=== PATIENT | female | born 1935 | race Caucasian/White ===

== ENCOUNTER → 2017-02-23 | Outpatient (CLI) | payer MEDICARE, MEDICAID ==
[2014-11-30 11:34] VITALS: BMI 24.8
[~2017-02-23] MED LIST: ACET-1966 PO; ACID1TAB21 PO; ALP5 PO; AMIT-104 PO; ANTIBIOTIC; ASCO-191 PO; ASPI-1471 PO; BACDS PO; BUSP10TA95 PO; BUSP15TA69 PO; CEF250 PO; CEF300 PO; CEP500 PO; CHOL100059 PO; CHOL200038 PO; CHOL500050 PO; CIP500 PO; CIPR-326 PO; CIPR-344 PO; CLOP75TA43 PO; CRAN500C10 PO; CYAN25007 PO; CYAN500T54 PO; CYCL-277 PO; CYCL10TA29 PO; DAR100 PO; DICL1ADH32 TD; DIPH-1 PO; DOC100 PO; DUL30 PO; FAM20 PO; FURO20TA19 PO; FURO40TA35 PO; GABA-549 PO; GOLYTE PO; GUAI118S76 PO; HYDR-385 PO; HYDR-6015 PO; IBU200 PO; IBU600 PO; IBUP200C71 PO; L.AC1CAP6 PO; LACT1CAP62 PO; LACT1CAP64 PO; LEVO-85 PO; LIBRAX; LID5T TP; LISI2.5T60 PO; LISINOPRIL PO; LOPE-111 PO; LOPE1LIQ49 PO; LOPE1TAB55 PO; LOPE2CAP88 PO; LOR5/325 PO; LOR75 PO; LORA-630 PO; MAGN400T4 PO; MELA3TAB45 PO; MET50 PO; METH-280 PO; METO25TA93 PO; MOM PO; MORP-1 PO; NIT4 SL; OMEP-137 PO; ONDA4TAB PO; OXYC-865 PO; OXYGENHOME INH; PAN20 PO; PAN40 PO; PANT40TA65 PO; PHENA100 PO; POTA-23 PO; POTA-28 PO; POTASSIUM; PRAV20TA65 PO; PROM-110 PO; PROM12.556 PO; PROM25S PR; PSYL3.4P2 PO; QUET25TA30 PO; RIV10 PO; SALI44.34 PO; SERT-1 PO; SERT-173 PO; SERT-181 PO; SERT20OR6 PO; SIMV-49 PO; SIMV-54 PO; SPIR25TA78 PO; SUC1 PO; SUCR1TAB51 PO; SUL500 PO; SULF-198 PO; TRAM-420 PO; VICODIN; VICODIN PO; [UNRECOGNIZED DRUG - CODE] PO; [UNRECOGNIZED DRUG - CODE] TP; lomotil PO
--- NOTE | 2017-02-23 16:00 | RADIOLOGY IMAGING REPORT ---
[place] [facility] [place] NAME: Hannah Gibson : 1935 MR: [id number] V: [id number] EXAM DATE: ORDERING PHYSICIAN: ROBBIN ARTIS TECHNOLOGIST: Location: [facility] Patient: Hannah Gibson : 1935 Visit/Account:[id number] Date of Sevice: 02/23/2017 Exam type: WRIST LEFT 2 VIEW History: L this morning with wrist pain Comparison: None. Findings: There is a mildly comminuted impacted fracture through the distal left radial metaphysis and epiphysi s. There appears to be a tiny intra-articular extension of the fracture. Incidentally noted are sev ere degenerative changes involving the first carpometacarpal articulation IMPRESSION: 1. Mildly comminuted impacted intra-articular fracture to the distal left radius Report Dictated By: Alexandra Tipton MD at 02/23/2017 3:55 PM Report E-Signed By: Alexandra Tipton MD at 02/23/2017 3:56 PM WSN:[email or web address]
--- NOTE | 2017-02-23 16:00 | RADIOLOGY IMAGING REPORT ---
FACILITY: [facility] PATIENT NAME: Hannah Gibson : 1935 MR: [id number] V: [id number] EXAM DATE: ORDERING PHYSICIAN: ROBBIN ARTIS TECHNOLOGIST: Location: Patient: Hannah Gibson : 1935 Visit/Account:[id number] Date of Sevice: 02/23/2017 Exam type: ELBOW 2 VIEW LEFT History: Fell this morning, Comparison: None. Findings: There are several well-corticated bony densities project adjacent to the medial and lateral humeral epicondyles. There is however no evidence of acute fractures or dislocations involving the left elbow IMPRESSION: 1. No evidence of acute fracture station involving the left elbow Report Dictated By: Alexandra Tipton MD at 02/23/2017 3:51 PM Report E-Signed By: Alexandra Tipton MD at 02/23/2017 3:55 PM WSN:[email or web address]
== END ==
LOC: RAD 14:25
PROVIDERS: ATTEND Family Medicine
DX: S52.572A Other intraarticular fracture of lower end of left radius, initial encounter for closed fracture (principal); M25.522 Pain in left elbow

== ENCOUNTER → 2017-03-01 | Outpatient (REF) | payer MEDICARE, MEDICAID ==
[2014-11-30 11:34] VITALS: BMI 24.8
== END ==
LOC: ZZSPRING 16:38
PROVIDERS: ATTEND Family Medicine
DX: R82.90 Unspecified abnormal findings in urine (principal); R29.6 Repeated falls
CPT/HCPCS: 81001

== ENCOUNTER → 2017-03-05 | Outpatient (REF) | payer MEDICARE, MEDICAID ==
[2014-11-30 11:34] VITALS: BMI 24.8
== END ==
LOC: ZZSENDIN 14:34
PROVIDERS: ATTEND Family Medicine
DX: R31.0 Gross hematuria (principal)
CPT/HCPCS: 81001; 87088

== ENCOUNTER → 2017-03-18 | Outpatient (CLI) | payer MEDICARE, MEDICAID ==
[2014-11-30 11:34] VITALS: BMI 24.8
--- NOTE | 2017-03-18 14:13 | RADIOLOGY IMAGING REPORT ---
FACILITY: [facility] [place] PATIENT NAME: Hannah Gibson : 1935 MR: [id number] V: [id number] EXAM DATE: ORDERING PHYSICIAN: ROBBIN ARTIS TECHNOLOGIST: [place] [facility] [place] : 1935 Visit/Account:[id number] Date of Sevice: 03/18/2017 Two views left wrist Indication: Fracture three weeks ago, follow-up Comparison: X-ray examination wrist February 23 Findings: Bones are osteopenic. Cast material has been removed. Fracture lucencies are still appreciated involving the comminuted, impacted fracture distal left radi us. Lateral view demonstrates stable appearance of the dorsal cortical step-off. IMPRESSION: 1. Compared to February 23, stable appearance of the comminuted, impacted distal left radial fracture. Report Dictated By: Jhon Laws MD at 03/18/2017 2:06 PM Report E-Signed By: Jhon Laws MD at 03/18/2017 2:09 PM WSN:[email or web address]
== END ==
LOC: RAD 11:35
PROVIDERS: ATTEND Family Medicine
DX: S52.92XD Unspecified fracture of left forearm, subsequent encounter for closed fracture with routine healing (principal)

== ENCOUNTER → 2017-04-01 | Outpatient (CLI) | payer MEDICARE, MEDICAID ==
[2014-11-30 11:34] VITALS: BMI 24.8
[~2017-04-01] MED LIST changes: -SERT20OR6 PO
--- NOTE | 2017-04-01 11:58 | RADIOLOGY IMAGING REPORT ---
FACILITY: [facility] - [place] PATIENT NAME: Hannah Gibson : 1935 MR: [id number] V: [id number] EXAM DATE: ORDERING PHYSICIAN: ROBBIN ARTIS TECHNOLOGIST: Location: [facility] [place] Patient: Hannah Gibson : 1935 Visit/Account:[id number] Date of Sevice: 04/01/2017 WRIST LEFT 2 VIEW History: Left wrist fracture. Comparison study: March 18, 2017. Findings: Again noted is a comminuted fracture of the distal left radius with mild impaction. There has been bony resorption and sclerosis around the fracture line. Fracture lines do not appear to ex tend to the articular surface. Sclerosis in the left ulnar epiphyseal region is reflective of healing of a previously occult horizon kelsea fracture. There are findings of osteoarthrosis involving the left first CMC joint. There is a subtle focus of calcification near the TFC. IMPRESSION: 1. Healing comminuted mildly impacted fracture of the distal left radius. The fracture line is only faintly visible this time. 2. Sclerosis in the distal left ulna consistent with healing of a previously occult horizontal fract ure. 3. 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 Report Dictated By: Cali Fallon MD at 04/01/2017 11:49 AM Report E-Signed By: Cali Fallon MD at 04/01/2017 11:53 AM WSN:[email or web address]
== END ==
LOC: RAD 11:21
PROVIDERS: ATTEND Family Medicine
DX: S52.592D Other fractures of lower end of left radius, subsequent encounter for closed fracture with routine healing (principal); M18.12 Unilateral primary osteoarthritis of first carpometacarpal joint, left hand

== ENCOUNTER 2017-06-10 00:07 | Day surgery (SDC) | payer MEDICARE, MEDICAID ==
[2014-11-30 11:34] VITALS: Ht 152.4 cm; Wt 63.5 kg
[~2017-06-10] VITALS: Ht 152.4 cm; Wt 63.5 kg
[~2017-06-10 00:07] MED LIST changes: +CHOL4PAC14 PO; +NYST15PO4 TP; +SULF1TAB24 PO
[2017-06-10 06:53] VITALS: BP 148/79
[2017-06-10] MEDS ORDERED: LIDOCAINE/SOD BICARB 8.4% SYR ID ONE (07:00)
[2017-06-10] MEDS ORDERED: NORMOSOL R SOLN(*) 1000 ML BAG 1,000 ML IV PRN (07:00)
[2017-06-10] MEDS ORDERED: PROPOFOL EMUL(*) 10MG/ML 20 ML 40 ML ONE (07:03)
--- NOTE | 2017-06-10 08:38 | Short(Outpt) Discharge Summary ---
Discharge Summary Reason for Hosp/Final Diag: (1) Dysphagia Status: Chronic Hospital Course & Plan: EGD with biopsies and esophageal dilation completed without problems. Departure Discharge to: Assisted Living Discharge Instructions Home Meds Active Scripts Ondansetron (ZOFRAN ODT) 4 Mg Tab.rapdis, 4 MG PO TID Y for NAUSEA/VOMITING, # 30 TAB.ANA MARIA 1 Refill Prov:ALONSO BENEDICT MD 05/23/15 Hydrocodone Bit/Acetaminophen (HYDROCODON-ACETAMINOPHEN 5-325) 1 Each Tab, 1 EACH PO QID Y for pain, #120 TAB Prov:LIZZY SOLIS MD 12/02/14 Lidocaine (LIDOCAINE) 1 Each Patch, 1 EACH TP QDAY Y for pain, #10 PATCH 1 Refill Prov:BETH SOLIS MD 10/26/14 Reported Medications Sulfamethoxazole/Trimethoprim (SULFAMETHOXAZOLE-TMP DS TABLET) 1 Each Tablet, 0.5 TAB PO Q12H 05/08/17 Nystatin 100,000 Unit/Gm Top Powder (NYSTATIN 100,000 UNIT/GM TOP POWDER) 15 Gm Powder, 15 GM TP PRN, TUBE 05/08/17 Cholestyramine/Aspartame (CHOLESTYRAMINE LIGHT PACKET) 4 Gm Powd.pack, 4 GM PO BID 05/08/17 Cyclobenzaprine Hcl (CYCLOBENZAPRINE HCL) 10 Mg Tablet, 5 MG PO TID for Muscle Relaxant, TAB 06/19/16 Acidoph/L.bulg/Bif.b/S.thermop (ALICE-BID CAPLET) 1 Each Tablet, 1 EACH PO QDAY 06/16/16 Promethazine Hcl (PROMETHAZINE HCL) 25 Mg Tablet, 12.5 MG PO Q8H, TAB 06/16/16 Magnesium Hydroxide (MILK OF MAGNESIA) 400 Mg/5 Ml Oral.susp, 15-30 ML PO PRN Y for CONSTIPATION, BOTTLE 06/16/16 Lorazepam (LORAZEPAM) 0.5 Mg Tablet, 1 MG PO TID 06/16/16 Diclofenac Epolamine (FLECTOR) 1 Each Patch.td12, 1 EACH TD PRN Y for PAIN 06/16/16 Oxygen (OXYGEN) Inha, 3 L INH, L 11/29/14 Loperamide Hcl (IMODIUM A-D) 1 Mg/7.5 Ml Liquid, 2 MG PO PRN 1-2 tab after each loose stool do not exceed 16mg/24hr 10/25/14 Saliva Stimulant Agents Comb.3 (BIOTENE MOISTURIZING MOUTH) 44.3 Ml [place], 1 SPRAY PO QID, SPRAY 10/01/14 Cholecalciferol (Vitamin D3) (VITAMIN D3) 50,000 Unit Capsule, 49797 UNIT PO THURSDAY, CAPSULE 10/01/14 Nitroglycerin (NITROSTAT) 0.4 Mg Subl, 0.4 MG SL Q5MIN 09/20/14 Diphenoxylate Hcl/Atropine (LOMOTIL TABLET) 1 Each Tablet, 1 EACH PO BID, TAB 09/20/14 Magnesium Oxide (MAG-OXIDE) 400 Mg Tablet, 400 MG PO BID 09/14/14 Omeprazole (OMEPRAZOLE) 20 Mg Tablet.dr, 20 MG PO BID, TAB 09/14/14 Lisinopril (LISINOPRIL) 2.5 Mg Tablet, 2.5 MG PO QDAY 09/14/14 Sertraline Hcl (ZOLOFT) 100 Mg Tablet, 150 MG PO QDAY, TAB 09/14/14 Simvastatin (SIMVASTATIN) 20 Mg Tablet, 20 MG PO HS, TAB 09/14/14 Furosemide (LASIX) 40 Mg Tablet, 20 MG PO DAILY, TAB 09/14/14 Acetaminophen (TYLENOL) 325 Mg Tablet, 2 TAB PO Q6H Y for PAIN 06/28/14 Melatonin (MELATONIN) 3 Mg Tablet.er, 3 MG PO HS 06/28/14 Cyanocobalamin (Vitamin B-12) (VITAMIN B-12) 2,500 Mcg Tab.subl, 2500 MCG PO DAILY 06/28/14 Aspirin (ASPIR 81) 81 Mg Tablet.dr, 81 MG PO QDAY, TAB 05/08/14 Buspirone Hcl (BUSPIRONE HCL) 15 Mg Tablet, 15 MG PO BID, TAB TAKE 1 TABLET BY MOUTH TWICE A DAY 03/15/14 Metoprolol Tartrate (Metoprolol Tartrate) 25 Mg Tablet, 0.5 TAB PO BID, 0 Refills 09/19/09 Discontinued Reported Medications Guaifenesin/Dextromethorphan (TUSSIN DM CLEAR LIQUID) 118 Ml Syrup, 118 ML PO 4- 6HRS PRN COUGH 06/19/16 Methocarbamol (METHOCARBAMOL) 750 Mg Tablet, 750 MG PO Q8-12H 06/16/16 Lactose-Free Food (ENSURE COMPLETE) 237 Ml Liquid, 237 ML PO QDAY 02/14/15 Quetiapine Fumarate (SEROQUEL) 25 Mg Tablet, 25 MG PO BID Y for PRN 09/20/14 Diet: Regular Activity: As Tolerated Special Instructions: Your EGD was completed without problems. You have some inflammation in your lower stomach so continue omeprazole as you are currently taking it. I did perform biopsies and my office will call you in the next week and let you know what the biopsies show. I also dilated your esophagus. Please call my office if you are having problems. Problem Qualifiers (1) Dysphagia: Dysphagia type: esophageal phase Qualified Codes: R13.10 - Dysphagia, unspecified ALONSO BENEDICT MD Jun 10, 2017 08:38
[2017-06-10 08:48] VITALS: BP 102/55
[2017-06-10 09:00] VITALS: BP 104/55
[2017-06-10 09:12] VITALS: BP 107/49
[2017-06-10 09:15] VITALS: BP 91/52
== END 2017-06-10 10:08 | disposition home or self-care (01) ==
LOC: OR 00:07
PROVIDERS: ATTEND Surgery
DX: K44.9 Diaphragmatic hernia without obstruction or gangrene (principal); K29.70 Gastritis, unspecified, without bleeding
CPT/HCPCS: 43239; 87077; 88305; 88344; J2704

== ENCOUNTER → 2017-09-17 | Outpatient (CLI) | payer MEDICARE, MEDICAID ==
[2014-11-30 11:34] VITALS: BMI 24.8
[~2017-09-17] MED LIST changes: +IBUP-136 PO; -IBUP200C71 PO; -SPIR25TA78 PO; +SPIR25TA80 PO
--- NOTE | 2017-09-17 12:04 | RADIOLOGY IMAGING REPORT ---
FACILITY: [facility] PATIENT NAME: Hannah Gibson : 1935 MR: [id number] V: [id number] EXAM DATE: ORDERING PHYSICIAN: POPEYE YANG TECHNOLOGIST: Location: [facility] Patient: Hannah Gibson : 1935 Visit/Account:[id number] Date of Sevice: 09/17/2017 ABDOMEN/PELVIS W/O CONTRAST HISTORY: Right flank pain TECHNIQUE: Axial images acquired through the abdomen/pelvis. Coronal and sagittal reformatting also performed. No IV contrast administered. Dose Lowering Technique One of the following dose optimization techniques was utilized in the performance of this exam: Autom ated exposure control; adjustment of the mA and/or kV according to the patient's size; or use of an i terative reconstruction technique. Specific details can be referenced in the facility's radiology C T exam operational policy. COMPARISON: May 30, 2016 FINDINGS: Visualized lung bases: Bilateral lower lobe pulmonary nodules appear stable. At least one appears t o be calcified Hepatobiliary: Postsurgical changes from a cholecystectomy. Calcified granulomas Spleen: Negative. Adrenals: Negative. Pancreas: Negative. Kidneys ureters and bladder: 2 mm obstructing calculus upper pole calyx of the right kidney again see n. Small intraparenchymal calcification lower pole right kidney also appears similar. Unchanged is a lobular contour to the right kidney. Left kidney appears severely atrophic containing multiple calcifications although appears similar t o the prior study . The bladder is partially decompressed therefore not ideally evaluated Genitalia: Hysterectomy GI: Diverticulosis left-sided colon although no CT evidence of acute diverticulitis Vessels/spaces/nodes: At least moderate vascular calcifications of the abdominal aorta and branch ve ssels. Bones/soft tissues: There is a small periumbilical hernia containing fat also noted is a small ventr al hernia to the left of midline in the upper abdomen also containing fat . Extensive postsurgical changes at L4, L5 and S1 from posterior lumbar interbody fusion with intervert ebral support cages. Extensive spondylotic changes are seen throughout the lumbar spine. There is a defect in the right iliac bone similar to the prior study and may be a donor site from a p rior bone graft. There are numerous soft tissue calcifications in the buttocks bilaterally which may be related to prior injections Additional findings: None pertinent. IMPRESSION: Nonobstructing nephrolithiasis on the right Severely atrophic left kidney with nonobstructing nephrolithiasis Diverticulosis left-sided colon Small. Focal hernia containing fat and small ventral hernia in the upper abdomen to the left midline also containing fat Lower lobe pulmonary nodules remain stable Postsurgical changes from a cholecystectomy and hysterectomy Evidence of a prior granulomatous process Additional chronic findings as described Report Dictated By: Alexandra Tipton MD at 09/17/2017 11:45 AM Report E-Signed By: Alexandra Tipton MD at 09/17/2017 12:00 PM MAGDALENEN:[email or web address]
== END ==
LOC: CT 02:30
DX: N20.0 Calculus of kidney (principal); K57.30 Diverticulosis of large intestine without perforation or abscess without bleeding; K43.9 Ventral hernia without obstruction or gangrene; R91.8 Other nonspecific abnormal finding of lung field; Z90.49 Acquired absence of other specified parts of digestive tract; Z90.79 Acquired absence of other genital organ(s); N26.1 Atrophy of kidney (terminal)
CPT/HCPCS: 74176

== ENCOUNTER 2017-11-03 00:49 | Day surgery (SDC) | payer MEDICARE, BC, MEDICAID ==
[2014-11-30 11:34] VITALS: Ht 152.4 cm; Wt 62.1 kg
[2017-11-03] VITALS (9 sets, daily range): BP systolic 76–121; BP diastolic 39–63
[~2017-11-03] VITALS: Ht 152.4 cm; Wt 62.1 kg
[~2017-11-03 00:49] MED LIST changes: +QUET25TA PO
[2017-11-03] MEDS ORDERED: LIDOCAINE/SOD BICARB 8.4% SYR ID ONE (08:50)
[2017-11-03] MEDS ORDERED: NORMOSOL R SOLN(*) 1000 ML BAG 1,000 ML IV PRN (08:50)
[2017-11-03] MEDS ORDERED: PROPOFOL EMUL(*) 10MG/ML 20 ML 40 ML ONE (09:39)
--- NOTE | 2017-11-03 10:05 | Short(Outpt) Discharge Summary ---
Discharge Summary Reason for Hosp/Final Diag: (1) Diarrhea Status: Chronic Hospital Course & Plan: Colonoscopy with polypectomy and biopsies completed without problems. (2) Mucus in stool Status: Chronic (3) Abdominal pain Status: Chronic (4) Tubular adenoma of colon Status: Chronic Departure Discharge to: Home, Self Care Discharge Instructions Home Meds Active Scripts Ondansetron (ZOFRAN ODT) 4 Mg Tab.rapdis, 4 MG PO TID PRN for NAUSEA/VOMITING, #30 TAB.ANA MARIA 1 Refill Prov:ALONSO BENEDICT MD 05/23/15 Hydrocodone Bit/Acetaminophen (HYDROCODON-ACETAMINOPHEN 5-325) 1 Each Tab, 1 EACH PO QID PRN for pain, #120 TAB Prov:LIZZY SOLIS MD 12/02/14 Lidocaine (LIDOCAINE) 1 Each Patch, 1 EACH TP QDAY PRN for pain, #10 PATCH 1 Refill Prov:BETH SOLIS MD 10/26/14 Reported Medications Quetiapine Fumarate (QUETIAPINE FUMARATE) 25 Mg Tablet, 25 MG PO BID 10/23/17 Ibuprofen (IBUPROFEN) 200 Mg Capsule, 1 CAP PO Q6H, CAPSULE 10/23/17 Gabapentin (GABAPENTIN) 300 Mg Capsule, 100 MG PO PRN, CAPSULE 10/23/17 Sulfamethoxazole/Trimethoprim (SULFAMETHOXAZOLE-TMP DS TABLET) 1 Each Tablet, 0.5 TAB PO Q12H 05/08/17 Nystatin 100,000 Unit/Gm Top Powder (NYSTATIN 100,000 UNIT/GM TOP POWDER) 15 Gm Powder, 15 GM TP PRN, TUBE 05/08/17 Cyclobenzaprine Hcl (CYCLOBENZAPRINE HCL) 10 Mg Tablet, 5 MG PO TID for Muscle Relaxant, TAB 06/19/16 Acidoph/L.bulg/Bif.b/S.thermop (ALICE-BID CAPLET) 1 Each Tablet, 1 EACH PO QDAY 06/16/16 Promethazine Hcl (PROMETHAZINE HCL) 25 Mg Tablet, 12.5 MG PO Q8H, TAB 06/16/16 Magnesium Hydroxide (MILK OF MAGNESIA) 400 Mg/5 Ml Oral.susp, 15-30 ML PO PRN PRN for CONSTIPATION, BOTTLE 06/16/16 Lorazepam (LORAZEPAM) 0.5 Mg Tablet, 1 MG PO TID 06/16/16 Diclofenac Epolamine (FLECTOR) 1 Each Patch.td12, 1 EACH TD PRN PRN for PAIN 06/16/16 Oxygen (OXYGEN) Inha, 3 L INH, L 11/29/14 Loperamide Hcl (IMODIUM A-D) 1 Mg/7.5 Ml Liquid, 2 MG PO PRN 1-2 tab after each loose stool do not exceed 16mg/24hr 10/25/14 Saliva Stimulant Agents Comb.3 (BIOTENE MOISTURIZING MOUTH) 44.3 Ml [place], 1 SPRAY PO QID, SPRAY 10/01/14 Cholecalciferol (Vitamin D3) (VITAMIN D3) 50,000 Unit Capsule, 90345 UNIT PO THURSDAY, CAPSULE 10/01/14 Nitroglycerin (NITROSTAT) 0.4 Mg Subl, 0.4 MG SL Q5MIN 09/20/14 Magnesium Oxide (MAG-OXIDE) 400 Mg Tablet, 400 MG PO BID 09/14/14 Omeprazole (OMEPRAZOLE) 20 Mg Tablet.dr, 20 MG PO BID, TAB 09/14/14 Lisinopril (LISINOPRIL) 2.5 Mg Tablet, 2.5 MG PO QDAY 09/14/14 Sertraline Hcl (ZOLOFT) 100 Mg Tablet, 150 MG PO QDAY, TAB 09/14/14 Simvastatin (SIMVASTATIN) 20 Mg Tablet, 20 MG PO HS, TAB 09/14/14 Furosemide (LASIX) 40 Mg Tablet, 20 MG PO DAILY, TAB 09/14/14 Acetaminophen (TYLENOL) 325 Mg Tablet, 2 TAB PO Q6H PRN for PAIN 06/28/14 Melatonin (MELATONIN) 3 Mg Tablet.er, 3 MG PO HS 06/28/14 Cyanocobalamin (Vitamin B-12) (VITAMIN B-12) 2,500 Mcg Tab.subl, 2500 MCG PO DAILY 06/28/14 Aspirin (ASPIR 81) 81 Mg Tablet.dr, 81 MG PO QDAY, TAB 05/08/14 Buspirone Hcl (BUSPIRONE HCL) 15 Mg Tablet, 15 MG PO BID, TAB TAKE 1 TABLET BY MOUTH TWICE A DAY 03/15/14 Metoprolol Tartrate (Metoprolol Tartrate) 25 Mg Tablet, 0.5 TAB PO BID, 0 Refills 09/19/09 Diet: Regular Activity: As Tolerated Special Instructions: Your colonoscopy was completed without any problems and your prep was excellent (Good Job!!). I removed 2 polyps from your colon and they were sent to pathology. I also took biopsies of your colon and rectum to evaluate possible causes of your diarrhea and the mucus in your stool. My office will call and schedule a follow up appointment with me for the next several weeks to discuss these results with you in the clinic. Problem Qualifiers (1) Diarrhea: Diarrhea type: unspecified type Qualified Codes: R19.7 - Diarrhea, unspecified (2) Abdominal pain: Abdominal location: generalized Qualified Codes: R10.84 - Generalized abdominal pain ALONSO BENEDICT MD Nov 03, 2017 10:05
== END 2017-11-03 11:40 | disposition home or self-care (01) ==
LOC: OR 00:49
PROVIDERS: ATTEND Surgery
DX: D12.3 Benign neoplasm of transverse colon (principal); K63.5 Polyp of colon; K57.30 Diverticulosis of large intestine without perforation or abscess without bleeding
CPT/HCPCS: 00811; 45385; 88305; J2704

== ENCOUNTER → 2017-12-15 | Outpatient (CLI) | payer MEDICARE, BC, MEDICAID ==
[2014-11-30 11:34] VITALS: BMI 24.8
== END ==
LOC: ZZSPRING 02:46
PROVIDERS: ATTEND Family Medicine
DX: E78.00 Pure hypercholesterolemia, unspecified (principal); E53.9 Vitamin B deficiency, unspecified; N18.4 Chronic kidney disease, stage 4 (severe)
CPT/HCPCS: 36415; 82310; 82374; 82435; 82465; 82565; 82607; 82947; 83718; 84132; 84295; 84478; 84520

== ENCOUNTER → 2018-01-26 | Outpatient (CLI) | payer MEDICARE, BC, MEDICAID ==
[2014-11-30 11:34] VITALS: BMI 24.8
== END ==
LOC: ZZSPRING 01:23
PROVIDERS: ATTEND Family Medicine
DX: N18.4 Chronic kidney disease, stage 4 (severe) (principal)
CPT/HCPCS: 36415; 82310; 82374; 82435; 82565; 82947; 84132; 84295; 84520

== ENCOUNTER → 2018-02-23 | Outpatient (CLI) | payer MEDICARE, MEDICAID ==
[2014-11-30 11:34] VITALS: BMI 24.8
== END ==
LOC: ZZSPRING 01:37
PROVIDERS: ATTEND Family Medicine
DX: N17.9 Acute kidney failure, unspecified (principal); I50.9 Heart failure, unspecified; E78.5 Hyperlipidemia, unspecified
CPT/HCPCS: 36415; 82310; 82374; 82435; 82565; 82947; 84132; 84295; 84520

== ENCOUNTER → 2018-03-02 | Outpatient (CLI) | payer MEDICARE, MEDICAID ==
[2014-11-30 11:34] VITALS: BMI 24.8
== END ==
LOC: ZZSPRING 00:44
PROVIDERS: ATTEND Internal Medicine Nephrology
DX: N17.9 Acute kidney failure, unspecified (principal); D50.9 Iron deficiency anemia, unspecified
CPT/HCPCS: 36415; 82040; 82310; 82340; 82374; 82435; 82507; 82550; 82565; 82728; 82947; 83540; 83550; 83735; 83945; 84100; 84132; 84295; 84520; 84560; 85027

== ENCOUNTER → 2018-03-10 | Outpatient (CLI) | payer MEDICARE, MEDICAID ==
[2014-11-30 11:34] VITALS: BMI 24.8
--- NOTE | 2018-03-10 11:41 | RADIOLOGY IMAGING REPORT ---
[place] [facility] [place] : 1935 MR: [id number] V: [id number] EXAM DATE: ORDERING PHYSICIAN: ROBBIN ARTIS TECHNOLOGIST: Location: [facility] [place] Patient: Hannah Gibson : 1935 Visit/Account:[id number] Date of Sevice: 03/10/2018 CT ABDOMEN PELVIS W/O CON HISTORY: Right-sided abdomen pain, right-sided flank pain TECHNIQUE: Axial images acquired through the abdomen/pelvis. Coronal and sagittal reformatting also performed. No IV contrast administered.Dose Lowering Technique One of the following dose optimization techniques was utilized in the performance of this exam: Autom ated exposure control; adjustment of the mA and/or kV according to the patient's size; or use of an i terative reconstruction technique. Specific details can be referenced in the facility's radiology C T exam operational policy. COMPARISON: September 17, 2017 FINDINGS: Visualized lung bases: Bilateral pulmonary micronodules remain stable. At least one appears to be c alcified Hepatobiliary: There are postsurgical changes from a cholecystectomy Spleen: Negative. 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 There is a 5 mm hypoattenuating mass left adrenal gland appears stable likely a small in cidental adenoma although too small to characterize Pancreas: Negative. Kidneys ureters and bladder: 2 mm nonobstructing calculus upper pole calyx of the right kidney again seen. There is a punctate 1 mm nonobstructing calculus lower pole calyx of the right kidney. Small intraparenchymal calcification lower pole of the right kidney also again noted perhaps minimally more prominent. There are severe atrophy of the left kidney which contains coarse calcifications although appears sim ilar to the prior examination. There is no evidence of hydronephrosis or hydroureter Genitalia: Hysterectomy GI: There is extensive diverticulosis throughout the left-sided the colon. There appears to be mild increased thickening in the sigmoid colon with mild infiltrative changes seen in the pericolonic fat . This is concerning for acute diverticulitis. There are several mildly dilated loops of small rogelio l in the right lower quadrant and mid lower abdomen. There are mild infiltrative changes seen in the surrounding fat as well.. A definite transitional point is not seen Vessels/spaces/nodes: At least moderate vascular calcification seen throughout the abdomen and pelvi s . There is a trace amount of fluid adjacent to the inferior right lobe of the liver and in the le ft lower quadrant abdomen Bones/soft tissues: There is a small periumbilical hernia containing fat. Ventral hernia to the lef t midline in the upper abdomen also containing fat again seen.. There is an additional ventral herni a or superiorly in the upper abdomen to left of midline also containing fat Additional findings: Spondylotic changes and postoperative changes lumbar spine appear relatively un changed. Also again noted is a defect in the right iliac bone that appears stable and may be donor s ite from a prior bone graft. Soft tissue calcifications are also noted in the buttocks bilaterally. 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 Also noted are several mildly dilated loops of small bowel in the right lower quadrant in the mid lower abdomen with mild infiltra tive changes in th surrounding fat as well. Definite transitional point is not seen. This could re present a partial small bowel obstruction or possibly enteritis .Small periumbilical hernia containing fat and two additional ventral hernias in the upper abdomen Additional chronic findings as described Results were called to ROBBIN ARTIS at 03/10/2018 11:36 AM. Report Dictated By: Alexandra Tipton MD at 03/10/2018 10:54 AM Report E-Signed By: Alexandra Tipton MD at 03/10/2018 11:37 AM WSN:[email or web address]
== END ==
LOC: CT 07:03
PROVIDERS: ATTEND Family Medicine
DX: N20.0 Calculus of kidney (principal); K57.30 Diverticulosis of large intestine without perforation or abscess without bleeding; R91.8 Other nonspecific abnormal finding of lung field
CPT/HCPCS: 74176

== ENCOUNTER → 2018-03-30 | Outpatient (CLI) | payer MEDICARE, MEDICAID ==
[2014-11-30 11:34] VITALS: BMI 24.8
== END ==
LOC: ZZSPRING 00:37
PROVIDERS: ATTEND Family Medicine
DX: E87.6 Hypokalemia (principal)
CPT/HCPCS: 36415; 82310; 82374; 82435; 82565; 82947; 84132; 84295; 84520

== ENCOUNTER → 2018-03-30 | Outpatient (CLI) | payer MEDICARE, MEDICAID ==
[2014-11-30 11:34] VITALS: BMI 24.8
--- NOTE | 2018-03-30 16:33 | RADIOLOGY IMAGING REPORT ---
[place] [facility] [place] Hannah Gisbon : 1935 MR: [id number] V: [id number] EXAM DATE: ORDERING PHYSICIAN: ROBBIN ARTIS TECHNOLOGIST: Location: [facility] [place] Patient: Hannah Gibson : 1935 Visit/Account:[id number] Date of Sevice: 03/30/2018 CHEST PA LAT Indication: History of heart attack, patient with cough shortness of breath. Comparison: Chest x-ray 11/10/2016 Findings: Lungs: There is mild hyperinflation and flattening of the diaphragms. The lungs are clear. Mediastinum/pulmonary vasculature: Heart size and pulmonary vasculature are normal. Bones/soft tissues: Sternotomy wires are unchanged. IMPRESSION: Clear lungs. Report Dictated By: Dudley Segura at 03/30/2018 4:26 PM Report E-Signed By: Dudley Segura at 03/30/2018 4:27 PM WSN:[email or web address]
== END ==
LOC: RAD 15:39
PROVIDERS: ATTEND Family Medicine
DX: R05 Cough (principal)
CPT/HCPCS: 71046

== ENCOUNTER → 2018-04-06 | Outpatient (CLI) | payer MEDICARE, MEDICAID ==
[2014-11-30 11:34] VITALS: BMI 24.8
== END ==
LOC: ZZSPRING 01:14
PROVIDERS: ATTEND Family Medicine
DX: R05 Cough (principal); J44.9 Chronic obstructive pulmonary disease, unspecified; E87.5 Hyperkalemia
CPT/HCPCS: 36415; 82310; 82374; 82435; 82565; 82947; 84132; 84295; 84520

== ENCOUNTER → 2018-04-27 | Outpatient (CLI) | payer MEDICARE, MEDICAID ==
[2014-11-30 11:34] VITALS: BMI 24.8
--- NOTE | 2018-04-27 12:56 | RADIOLOGY IMAGING REPORT ---
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 Unchanged linear type atelectasis/scarring is noted within the lingula. There is stable hyperinflation with similar chronic central bronchitic changes. No evidence of new i nfiltrate or failure. No effusion or pneumothorax. Bones are osteopenic with multilevel degenerativ e change. No acute osseous finding. IMPRESSION: 1. Pulmonary hyperinflation with stable chronic central bronchitic changes. No acute finding. Report Dictated By: Jhon Laws MD at 04/27/2018 12:52 PM Report E-Signed By: Jhon Laws MD at 04/27/2018 12:53 PM WSN:[email or web address]
== END ==
LOC: RAD 12:08
PROVIDERS: ATTEND Physician Assistant
DX: M85.89 Other specified disorders of bone density and structure, multiple sites (principal); R91.8 Other nonspecific abnormal finding of lung field
CPT/HCPCS: 71046

== ENCOUNTER → 2018-04-27 | Outpatient (REF) | payer MEDICARE, MEDICAID ==
[2014-11-30 11:34] VITALS: BMI 24.8
== END ==
LOC: ZZSENDIN 12:09
PROVIDERS: ATTEND Physician Assistant
DX: I50.20 Unspecified systolic (congestive) heart failure (principal)
CPT/HCPCS: 83880

== ENCOUNTER → 2018-05-04 | Outpatient (REF) | payer MEDICARE, MEDICAID ==
[2014-11-30 11:34] VITALS: BMI 24.8
== END ==
LOC: ZZSENDIN 11:36
PROVIDERS: ATTEND Physician Assistant
DX: I50.22 Chronic systolic (congestive) heart failure (principal)
CPT/HCPCS: 83880

== ENCOUNTER → 2018-05-10 | Outpatient (CLI) | payer MEDICARE, MEDICAID ==
[2014-11-30 11:34] VITALS: BMI 24.8
== END ==
LOC: US 02:29
PROVIDERS: ATTEND Physician Assistant
DX: I50.22 Chronic systolic (congestive) heart failure (principal)
CPT/HCPCS: 36415; 83880; 93306

== ENCOUNTER → 2018-06-03 | Outpatient (CLI) | payer MEDICARE, MEDICAID ==
[2014-11-30 11:34] VITALS: BMI 24.8
--- NOTE | 2018-06-03 14:11 | RADIOLOGY IMAGING REPORT ---
FACILITY: [facility] PATIENT NAME: Hannah Gibson : 1935 MR: [id number] V: [id number] EXAM DATE: [id number] ORDERING PHYSICIAN: ROBBIN ARTIS TECHNOLOGIST: Location: [facility] Patient: Hannah Gibson : 1935 Visit/Account:[id number] Date of Sevice: 06/03/2018 Exam type: XR WRIST 3 OR MORE VIEWS RT History: Fell yesterday onto right wrist, pain swelling and bruising Comparison: Left wrist April 01, 2017. Findings: There is diffuse osteopenia present. There are severe degenerative changes involving the first carpo metacarpal articulation. A large subchondral cyst is noted along the base of the first metacarpal. There is subtle band of increased density along the distal right radius. A subtle impacted fracture cannot be totally excluded in light of the clinical history. Of the navicular bone was not ideally v isualized. If a navicular fracture is of clinical concern a navicular series is recommended IMPRESSION: 1. Subtle band of increased density along the distal right radius could represent super imposed shad ows although a subtle impacted fracture cannot be totally excluded in light of clinical history Navicular bone is not ideally visualized and if a navicular fracture is of clinical concern a navicul ar series is recommended Severe degenerative changes and osteopenia as described Report Dictated By: Alexandra Tipton MD at 06/03/2018 2:04 PM Report E-Signed By: Alexandra Tipton MD at 06/03/2018 2:06 PM WSN:[email or web address]
== END ==
LOC: RAD 11:56
PROVIDERS: ATTEND Family Medicine
DX: S60.212A Contusion of left wrist, initial encounter (principal); M85.831 Other specified disorders of bone density and structure, right forearm

== ENCOUNTER → 2018-06-07 | Outpatient (CLI) | payer MEDICARE, MEDICAID ==
[2014-11-30 11:34] VITALS: BMI 24.8
--- NOTE | 2018-06-07 11:57 | RADIOLOGY IMAGING REPORT ---
FACILITY: [facility] - [place] PATIENT NAME: Hannah Gibson : 1935 MR: [id number] V: [id number] EXAM DATE: ORDERING PHYSICIAN: ROBBIN ARTIS TECHNOLOGIST: Location: [facility] Patient: Hannah Gibson : 1935 Visit/Account:[id number] Date of Sevice: 06/07/2018 Exam type: XR WRIST 2 VWS RT History: Fell onto right wrist with right wrist pain Comparison: June 03, 2018. Findings: Again noted is diffuse osteopenia. There is severe degenerative changes involving the first carpomet acarpal articulation. A large subchondral cyst is again noted along the base of the first metacarpal . Now appears to be a vertical lucency traversing the distal metaphysis and epiphysis of the right r adius which could represent a small nondisplaced fracture. This is best appreciated on the navicular view. There appears to be a small bony fragment projecting along the distal medial corner of the na vicular bone only seen on one view could represent a small nondisplaced fracture. This is not apprec iated on any the other views however IMPRESSION: 1. There appears to be a vertical lucency traversing the distal metaphysis and epiphysis of the righ t radius which could represent a small nondisplaced fracture. There is a small bony fragment projecting along the distal medial corner of the navicular bone only s een on one view which could represent a nondisplaced fracture versus superimposed shadow as this is n ot identified on any of the other views. Report Dictated By: Alexandra Tipton MD at 06/07/2018 11:26 AM Report E-Signed By: Alexandra Tipton MD at 06/07/2018 11:52 AM WSN:[email or web address]
== END ==
LOC: RAD 10:17
PROVIDERS: ATTEND Family Medicine
DX: R29.898 Other symptoms and signs involving the musculoskeletal system (principal)

== ENCOUNTER → 2018-06-29 | Outpatient (CLI) | payer MEDICARE, MEDICAID ==
[2014-11-30 11:34] VITALS: BMI 24.8
--- NOTE | 2018-06-29 11:22 | RADIOLOGY IMAGING REPORT ---
FACILITY: [facility] [place]IENT NAME: Hannah Gibson : 1935 MR: [id number] V: [id number] EXAM DATE: ORDERING PHYSICIAN: ROBBIN ARTIS TECHNOLOGIST: Location: [facility] Patient: Hannah Gibson : 1935 Visit/Account:[id number] Date of Sevice: 06/29/2018 XR WRIST 2 VWS RT Two-view examination of the right wrist. Comparison made to previous study 06/07/2018 FINDINGS: There is a sclerotic healing response to the distal radial metaphysis compatible with a healing minim ally impacted distal radial transverse fracture. 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 IMPRESSION: 1. Sclerotic healing response to a minimally impacted distal transverse radial fracture. 2. 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 Report Dictated By: Chauncey Briones MD at 06/29/2018 11:14 AM Report E-Signed By: Chauncey Briones MD at 06/29/2018 11:19 AM WSN:REED
== END ==
LOC: RAD 09:33
PROVIDERS: ATTEND Family Medicine
DX: S52.531D Colles' fracture of right radius, subsequent encounter for closed fracture with routine healing (principal)

== ENCOUNTER → 2018-07-13 | Outpatient (CLI) | payer MEDICARE, MEDICAID ==
[2014-11-30 11:34] VITALS: BMI 24.8
--- NOTE | 2018-07-13 13:26 | RADIOLOGY IMAGING REPORT ---
FACILITY: [facility] - [place] PATIENT NAME: Hannah Gibson : 1935 MR: [id number] V: [id number] EXAM DATE: ORDERING PHYSICIAN: ROBBIN ARTIS TECHNOLOGIST: Location: [facility] Patient: Hannah Gibson : 1935 Visit/Account:[id number] Date of Sevice: 07/13/2018 XR WRIST 2 VWS RT History: Fell 5 weeks ago. Right wrist pain. Comparison study: None. Findings: There is diffuse osteopenia. Compared to the prior exam shows again a horizontal sclerosi s due to a mildly comminuted fracture of the distal right radius that extends to the articular surfac e. The fracture is less visible now due to interval healing. There are severe findings of what appear to osteoarthrosis in the right first CMC joint. There is chondrocalcinosis. IMPRESSION: 1. Stable appearance of healing fracture of the distal right radius. 2. 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 3. Stable chondrocalcinosis. Report Dictated By: Cali Fallon MD at 07/13/2018 1:18 PM Report E-Signed By: Cali Fallon MD at 07/13/2018 1:21 PM WSN:MATA
== END ==
LOC: RAD 11:26
PROVIDERS: ATTEND Family Medicine
DX: S52.531D Colles' fracture of right radius, subsequent encounter for closed fracture with routine healing (principal)

== ENCOUNTER 2018-07-20 17:19 | Outpatient (RCR) | payer MEDICARE, BC, MEDICAID ==
[2014-11-30 11:34] VITALS: BMI 24.8
[2018-07-23] MEDS ORDERED: NS(*) 0.9% 100 ML BAG 100 ML IVPB PRN (15:35)
[2018-07-23] MEDS ORDERED: DEXTROSE 5%(*) 100 ML BAG 100 ML IVPB PRN (15:35)
[2018-07-23] MEDS ORDERED: LIDOCAINE/SOD BICARB 8.4% SYR ID PRN (15:35)
== END 2018-07-27 15:13 | disposition home or self-care (01) ==
LOC: SPU 17:19
DX: D50.9 Iron deficiency anemia, unspecified (principal); N18.3 Chronic kidney disease, stage 3 (moderate)
CPT/HCPCS: 51701; 81001; 87088

== ENCOUNTER → 2018-07-20 | Outpatient (REF) | payer MEDICARE, BC, MEDICAID ==
[2014-11-30 11:34] VITALS: BMI 24.8
[~2018-07-20] MED LIST changes: -PROM12.556 PO; +PROM12.557 PO
== END ==
LOC: ZZSPRING 09:08
PROVIDERS: ATTEND Internal Medicine Nephrology
DX: N28.9 Disorder of kidney and ureter, unspecified (principal); N17.9 Acute kidney failure, unspecified; N18.3 Chronic kidney disease, stage 3 (moderate); I10 Essential (primary) hypertension; D50.9 Iron deficiency anemia, unspecified
CPT/HCPCS: 36415; 82040; 82310; 82374; 82435; 82565; 82728; 82947; 83540; 83550; 83735; 84100; 84132; 84295; 84520; 84550; 85027

== ENCOUNTER 2018-08-10 09:55 | Outpatient (RCR) | payer MEDICARE, BC, MEDICAID ==
[2014-11-30 11:34] VITALS: BMI 24.8
[2018-07-27 10:43] VITALS: BP 161/84
[2018-07-27] MEDS: NS(*) 0.9% 100 ML BAG 100 ML IVPB PRN (12:58)
[2018-07-27] MEDS: LIDOCAINE/SOD BICARB 8.4% SYR ID PRN (12:59)
[2018-08-03 09:55] VITALS: BP 148/73
[2018-08-03] MEDS: LIDOCAINE/SOD BICARB 8.4% SYR ID PRN (11:34)
[2018-08-03 13:15] VITALS: BP 118/51
[~2018-08-10 09:55] MED LIST changes: +DEXTROSE 5%(*) 100 ML BAG 100 ML IVPB PRN; +IRON SUCROSE 100 MG/5 ML VIAL 300 MG in NS(*) 0.9% 250 ML BAG 250 ML IVPB ONE
[2018-08-10 10:00] VITALS: BP 130/84
[2018-08-10] MEDS: LIDOCAINE/SOD BICARB 8.4% SYR ID PRN (10:18)
[2018-08-10] MEDS: NS(*) 0.9% 100 ML BAG 100 ML IVPB PRN (10:18)
[2018-08-10] MEDS ORDERED: IRON SUCROSE 100 MG/5 ML VIAL 300 MG in NS(*) 0.9% 250 ML BAG 250 ML IVPB ONE (10:45)
[2018-08-10 12:01] VITALS: BP 143/73
== END 2018-09-08 13:39 | disposition home or self-care (01) ==
LOC: SPU 09:55
PROVIDERS: ATTEND Internal Medicine Nephrology
DX: D50.9 Iron deficiency anemia, unspecified (principal); N18.3 Chronic kidney disease, stage 3 (moderate)
CPT/HCPCS: 96365; 96366; J1756; J7050